=== PATIENT | male | born 1975 | race Two or more races ===

== ENCOUNTER 2018-02-05 13:41 | Inpatient (IN) | payer OTHER ==
[~2018-02-05] VITALS: Ht 165.1 cm; Wt 79.5 kg
[2018-02-05] MEDS ORDERED: LIDOcaine 1% 30ml preserv. free vial IJ ONE (14:10)
[2018-02-05] MEDS ORDERED: SULF1TAB49 PO (14:11)
[2018-02-05] MEDS ORDERED: NO HOME MEDS (14:44)
[2018-02-05] MEDS ORDERED: oxyCODONE IR 5mg (immed. release) tablet PO ONE (15:10)
[2018-02-05 15:49] LABS: BASOPHILS % (AUTO) 0.2 % (0-1); EOSINOPHILS # (AUTO) 0.4 X10'3 (0-0.9); EOSINOPHILS % (AUTO) 2.8 % (0-6); HEMATOCRIT 34.5 % (42.0-52.0); HEMOGLOBIN 11.1 g/dl (14.0-17.9); LYMPHOCYTES # (AUTO) 1.4 X10'3 (1.1-4.8); LYMPHOCYTES % (AUTO) 10.7 % (21-51); MEAN CORPUSCULAR HEMOGLOBIN 23.9 PG (27.0-31.0); MEAN CORPUSCULAR HGB CONC 32.3 % (33.0-36.5); MEAN PLATELET VOLUME 7.7 FL (7.4-10.4); MONOCYTES % (AUTO) 8.1 % (2-12); NEUTROPHILS # (AUTO) 10.1 X10'3 (1.8-7.7); NEUTROPHILS % (AUTO) 78.2 % (42-75); PLATELET COUNT 418 X10'3 (140-440); RED BLOOD COUNT 4.66 X10'6 (4.70-6.10); RED CELL DISTRIBUTION WIDTH 17.4 % (11.5-14.5); WHITE BLOOD COUNT 12.9 X10'3 (4.5-11.0)
[2018-02-05 16:06] LABS: ALANINE AMINOTRANSFERASE 46 U/L (12-78); ALBUMIN 2.7 G/DL (3.4-5.0); ALBUMIN/GLOBULIN RATIO 0.5 (1.1-1.5); ALKALINE PHOSPHATASE 65 IU/L (46-116); ANION GAP 9 (8-16); ASPARTATE AMINO TRANSFERASE 33 U/L (10-37); BILIRUBIN,TOTAL 0.3 MG/DL (0.1-1.0); BLOOD UREA NITROGEN 13 MG/DL (7-18); BUN/CREATININE RATIO 17.3 (5.4-32.0); CALCIUM 8.3 MG/DL (8.5-10.1); CHLORIDE 100 MMOL/L (99-107); CREATININE 0.75 MG/DL (0.60-1.10); GLUCOSE 114 MG/DL (70-104); POTASSIUM 3.9 MMOL/L (3.5-5.1); SODIUM 137 MMOL/L (135-145); TOTAL CARBON DIOXIDE 27.7 MMOL/L (24-32); TOTAL PROTEIN 8.2 G/DL (6.4-8.2); eGFR > 90 ML/MIN
[2018-02-05 16:07] LABS: INR 1.1 INR; PARTIAL THROMBOPLASTIN TIME 33 SECONDS (22-32); PROTHROMBIN TIME 10.7 SECONDS (9.0-12.0)
[2018-02-05] MEDS ORDERED: vancomycin/NS 1 GM ADD-VANTAGE 250 ML X 1 DOSE IV ONE (16:35)
[2018-02-05 17:00] VITALS: BP 124/87
[2018-02-05] MEDS ORDERED: potassium Cl 20mEq in NS 1,000 ML IV SCH (17:08)
[2018-02-05] MEDS ORDERED: potassium Cl 20 mEq SR tablet PO PRN ×2 (17:10)
[2018-02-05] MEDS ORDERED: HYDROcodone/acetaminophen 5mg/325mg tablet PO PRN (17:10)
[2018-02-05] MEDS ORDERED: magnesium 4gm in 100ml NS 100 ML IV PRN (17:10)
[2018-02-05] MEDS ORDERED: magnesium hydroxide 30ml (MOM) UD suspension PO PRN (17:10)
[2018-02-05] MEDS ORDERED: acetaminophen 325mg tablet PO PRN (17:10)
[2018-02-05] MEDS ORDERED: morphine 2 MG/ML inj. syringe IV PRN ×2 (17:10)
[2018-02-05] MEDS ORDERED: mag hydrox/Alum hydrox/simeth 30ml oral suspension PO PRN (17:10)
[2018-02-05] MEDS ORDERED: ondansetron/PF 4mg/2ml inj IV PRN (17:10)
[2018-02-05] MEDS ORDERED: magnesium 1gm/100ml D5W IVPB 100 ML IV PRN (17:10)
[2018-02-05] MEDS ORDERED: bisacodyl 10mg suppository rectal RC PRN (17:10)
[2018-02-05] MEDS ORDERED: HYDROcodone/acetaminophen 10/325mg tab PO PRN (17:10)
[2018-02-05] MEDS ORDERED: levoFLOXACIN-Levaquin 500mg/D5 100 ML IV SCH (17:10)
[2018-02-05] MEDS ORDERED: magnesium Cl slow-release 64mg tablet PO PRN (17:10)
[2018-02-05] MEDS ORDERED: potassium Cl 40MEQ/NS 500ml 500 ML IV PRN ×2 (17:10)
[2018-02-05] MEDS ORDERED: iohexol 300mg/ml 100ml inj. ONE (17:20)
[2018-02-05 18:33] LABS: HIV ANTIBODY 1&2 RAPID NON-REACTIVE (Neg)
[2018-02-05] MEDS ORDERED: docusate sod 100mg capsule PO SCH (20:00)
[2018-02-05] MEDS ORDERED: bacitracin 15gm ointment TP SCH (20:00)
[2018-02-06] MEDS ORDERED: vancomycin/NS 1 GM ADD-VANTAGE 250 ML IV SCH ×2 (01:00→04:00)
[2018-02-06] MEDS ORDERED: nicotine 21mg patch - 24 hr TD SCH (08:00)
[2018-02-06] MEDS ORDERED: enoxaparin 40mg/0.4ml syringe SUBCUT SCH (08:00)
[2018-02-06] MEDS ORDERED: K and/or MAG REPLACEMENT MC SCH (08:00)
[2018-02-06] MEDS ORDERED: VANCOMYCIN LEVEL IV NR (16:30)
== END 2018-02-05 18:30 | disposition left against medical advice (07) | DRG 603 ==
LOC: ER 13:42 → ED HOLD 17:08
PROVIDERS: ADMIT Internal Medicine; ATTEND Internal Medicine
PROC: 0H9BXZZ Drainage of Right Upper Arm Skin, External Approach (ICD-10-PCS; principal; 2018-02-05)
PROC: 0H98XZZ Drainage of Buttock Skin, External Approach (ICD-10-PCS; 2018-02-05)
PROC: 0W9F3ZZ Drainage of Abdominal Wall, Percutaneous Approach (ICD-10-PCS; 2018-02-05)
DX: L02.31 Cutaneous abscess of buttock (principal); L02.211 Cutaneous abscess of abdominal wall; L02.413 Cutaneous abscess of right upper limb; F11.10 Opioid abuse, uncomplicated; F17.210 Nicotine dependence, cigarettes, uncomplicated; K59.09 Other constipation; G89.29 Other chronic pain; R32 Unspecified urinary incontinence; Z53.21 Procedure and treatment not carried out due to patient leaving prior to being seen by health care provider; M54.9 Dorsalgia, unspecified; Z71.6 Tobacco abuse counseling; Z71.51 Drug abuse counseling and surveillance of drug abuser
CPT/HCPCS: 10061; 36415; 80053; 83605; 85025; 85610; 85730; 86703; 87040; 87070; 87077; 87186; 96365; 99285; A6266; G0378; J3370; J3490; Q9967